=== PATIENT | male | born 1955 | race Caucasian/White ===

== ENCOUNTER → 2019-12-14 13:07 | Outpatient (REF) | payer OTHER, SELFPAY | LOC: ANHLAB 13:07 | PROVIDERS: Visit Provider Surgery Plastic and Reconstructive Surgery | DX: D23.5 Other benign neoplasm of skin of trunk (principal) | CPT/HCPCS: 88304 ==

== ENCOUNTER 2020-08-08 13:44 | Outpatient (CLI) | payer OTHER, SELFPAY ==
--- NOTE | 2020-08-08 17:06 | WPDPFTINT ---
PFT Procedure Performed PFT Procedure Performed Plethysmography (Lung Vol) Diffusing Cap (DLCO) Flow Vol Loop Spirometry w/o Bronchodil PFT Interpretation This is a pulmonary function test with spirometry, plethysmography and diffusing capacity. The test was performed and results interpreted in accordance with the 2019 and 2005 ATS/ERS Task Force guidelines respectively using the Global Lung Function Initiative-2012 reference equations. Patient demonstrated good effort and cooperation. Reproducibility criteria were met. The quality of the spirometry maneuver was Grade B. Findings: Spirometry: The contour of the inspiratory and expiratory flow tracing are normal. The FVC is 4.31 L, 103% predicted. The FEV1 is 3.35 L, 104% predicted. The FEV1: FVC ratio is 78%. Plethysmography: The total lung capacity is 6.90 L, 102% predicted. The functional residual capacity is 2.77 L, 77% predicted. The residual volume is 2.49 L, 107% predicted. Diffusing capacity: The absolute diffusion capacity is 27.0, 102% predicted. The diffusing capacity corrected for alveolar volume is 5.27, 129% predicted. Impression: The spirometry is normal without evidence of an obstructive abnormality. The lung volumes are normal. The diffusing capacity is normal. There are no prior studies for comparison
== END 2020-08-08 13:45 | disposition home or self-care (01) ==
LOC: ANHPFT 13:46
DX: R06.00 Dyspnea, unspecified (principal)
CPT/HCPCS: 94375; 94726; 94729

== ENCOUNTER → 2021-10-15 10:01 | Outpatient (CLI) | payer OTHER, SELFPAY ==
--- NOTE | ~2021-10-15 | CT_ITS ---
EXAMINATION: CT abdomen pelvis w con DATE: 10/15/2021 10:30 INDICATION: Left lower quadrant abdominal pain for couple of weeks. Abdominal distention. TECHNIQUE: Computed tomography (CT) of the abdomen and pelvis was performed with 100 CC Omnipaque 350 intravenous contrast. Automated exposure control and iterative reconstruction technique were employe d. Exam dose: 759.61 mGy-cm total exam DLP. COMPARISON: 06/04/2018 CT abdomen pelvis FINDINGS: The lung bases are clear of infiltrate or consolidation. Normal heart size. No pericardial or pleural effusion. Approximately 8.5 mm right hepatic cyst. The liver, gallbladder, bile ducts, pancreas, pancreatic johnathan t and spleen are otherwise unremarkable. Stable rounded 1.4 cm soft tissue mass at the medial aspect of the left adrenal gland, unchanged sinc e 06/04/2018 and therefore presumably benign, possibly of adrenal or splenic origin. Again noted is an approximately 5.6 cm exophytic upper pole left renal cyst smaller bilateral parapel alex renal cysts. No ureteral calculus or hydroureteronephrosis. There is prostate enlargement. The urinary bladder is unremarkable. Normal caliber of the abdominal aorta. No intraperitoneal or retroperitoneal or pelvic mass lesion or adenopathy or ascites. Small sliding hiatal hernia. Normal appendix. Minimal left colon diverticulosis; no evidence of diverticulitis. No bowel obstruction, bowel wall thickening, pneumatosis or intraperitoneal free air. There is moderately prominent degenerative disc disease at L5-S1, with mild retrolisthesis. There is some degenerative spurring in the lower thoracic and to a lesser extent lumbar spine. Moderately prominent bilateral hip osteoarthritis.. Small fat-containing inguinal hernias, right larger than left. Small fat-containing umbilical hernia. IMPRESSION: Minimal left colon diverticulosis; no evidence of diverticulitis Small sliding hiatal hernia Normal appendix 8 mm hepatic cyst Bilateral renal cysts Minimal left colon diverticulosis; no CT evidence of diverticulitis Prostate enlargement Reviewed, dictated and finalized at [facility]. Reviewed, dictated and finalized at [facility].
[2021-10-15 10:24] LABS: Estimated Glomerular Filt Rate 60
== END ==
PROVIDERS: PCP Internal Medicine Geriatric Medicine; Visit Provider Internal Medicine Geriatric Medicine
DX: R10.32 Left lower quadrant pain (principal); M47.817 Spondylosis without myelopathy or radiculopathy, lumbosacral region; K44.9 Diaphragmatic hernia without obstruction or gangrene; K76.89 Other specified diseases of liver; N28.1 Cyst of kidney, acquired; K57.30 Diverticulosis of large intestine without perforation or abscess without bleeding; K40.90 Unilateral inguinal hernia, without obstruction or gangrene, not specified as recurrent
CPT/HCPCS: 74177; Q9967

== ENCOUNTER 2022-04-30 15:30 | Outpatient (CLI) | payer OTHER, SELFPAY ==
--- NOTE | ~2022-04-30 | XR_ITS ---
EXAMINATION: XR abdomen obstructive series DATE: 04/30/2022 16:13 INDICATION: Acute abdomen pain TECHNIQUE: Supine and upright views of the abdomen. FINDINGS: 06/04/2018 The visualized lung parenchyma is normal.. There is a nonobstructive bowel gas pattern. Gas and stool are seen throughout the colon to the level of the rectum. There is no free air. There is mild lumba r spondylosis. IMPRESSION: 1. No acute abdominal abnormality. Reviewed, dictated and finalized at [facility]. [employer]
== END 2022-04-30 15:31 ==
PROVIDERS: PCP Internal Medicine Geriatric Medicine; Visit Provider Internal Medicine Geriatric Medicine
DX: R10.0 Acute abdomen (principal); R14.0 Abdominal distension (gaseous)
CPT/HCPCS: 74019

== ENCOUNTER 2024-05-29 12:00 | Outpatient (CLI) | payer OTHER, SELFPAY ==
--- NOTE | ~2024-05-29 | XR_ITS ---
Cervical Spine: AP, lateral, open-mouth views Clinical History: Pain Findings: The normal lordotic curve is maintained. No fracture or subluxation. There is severe degene rative disc narrowing at C5-C6 and C6-C7. There is minimal facet arthropathy.. Pre-vertebral soft tis sues are unremarkable. Impression: Degenerative spondylosis, as above, predominantly at C5-C6 and C6-C7. Reviewed, dictated and finalized at [facility]. Impression: Degenerative spondylosis, as above, predominantly at C5-C6 and C6-C7.
--- NOTE | ~2024-05-29 | XR_ITS ---
Left Shoulder Technique: AP and scapular Y views were obtained. Clinical History: Pain Findings: No fracture or dislocation is seen. Osseous alignment is anatomic. The glenohumeral and acr omioclavicular joint spaces are preserved. Soft tissues are unremarkable. Impression: Unremarkable left shoulder radiographs. Reviewed, dictated and finalized at [facility]. Impression: Unremarkable left shoulder radiographs.
--- NOTE | ~2024-05-29 | XR_ITS ---
EXAMINATION: XR chest 2V 05/29/2024 13:12 INDICATION: Chest pain PROCEDURE: 2 view chest COMPARISON: 06/04/2018 FINDINGS: The lungs are clear. The cardiomediastinal silhouette is within normal limits. There are no pleural effusions. There is no pneumothorax suspected. IMPRESSION: 1: NO ACUTE CARDIOPULMONARY DISEASE. Reviewed, dictated and finalized at [facility].
== END 2024-05-29 12:01 | disposition home or self-care (01) ==
LOC: MICIMG 12:03
PROVIDERS: PCP Internal Medicine Geriatric Medicine; Visit Provider Internal Medicine Geriatric Medicine
DX: M47.812 Spondylosis without myelopathy or radiculopathy, cervical region (principal); M25.512 Pain in left shoulder; R07.9 Chest pain, unspecified
CPT/HCPCS: 71046; 72040; 73030

== ENCOUNTER 2024-06-12 13:51 | Outpatient (CLI) | payer OTHER, SELFPAY ==
--- NOTE | ~2024-06-12 | MR_ITS ---
EXAMINATION: MR cervical spine wo con DATE: 06/12/2024 14:19 INDICATION: Cervical radiculopathy. TECHNIQUE: Magnetic resonance imaging (MRI) of the cervical spine was performed without intravenous c ontrast. COMPARISON: Cervical spine radiographs 05/29/2024 FINDINGS: There is 3 degrees levocurvature of cervical spine. Vertebral bodies are normal. There is s everely decreased disc height at C5-C6 and C6-C7. The spinal cord signal intensity is normal. The fol lowing disc levels are specifically discussed: C2-C3: The disc does not extend beyond the endplate margin. There is mild right and moderate left unc overtebral joint osteoarthritis. There is no facet joint osteoarthritis. There is mild left neural fo raminal stenosis. There is no central canal stenosis. C3-C4: The disc is bulging. There is severe bilateral uncovertebral joint osteoarthritis. There is se burke bilateral facet joint osteoarthritis. There is mild bilateral neural foraminal stenosis. There i s mild central canal stenosis. C4-C5: There is a central protrusion. There is mild bilateral uncovertebral joint osteoarthritis. The re is moderate right and severe left facet joint osteoarthritis. There is mild bilateral neural jak inal stenosis. There is mild central canal stenosis. C5-C6: The disc does not extend beyond the endplate margin. There is severe bilateral uncovertebral j oint osteoarthritis. There is mild bilateral facet joint osteoarthritis. There is mild bilateral neur al foraminal stenosis. There is mild central canal stenosis. C6-C7: The disc is bulging. There is severe bilateral uncovertebral joint osteoarthritis. There is se burke bilateral facet joint osteoarthritis. There is mild right and moderate left neural foraminal elinor nosis. There is mild central canal stenosis. C7-T1: The disc is bulging. There is no uncovertebral joint osteoarthritis. There is moderate bilater al facet joint osteoarthritis. There is no neural foraminal stenosis. There is no central canal steno sis. IMPRESSION: 1. Severe cervical spondylosis. Reviewed, dictated and finalized at location [facility].
== END 2024-06-12 13:52 | disposition home or self-care (01) ==
LOC: MICIMG 13:52
PROVIDERS: PCP Internal Medicine Geriatric Medicine; Visit Provider Internal Medicine Geriatric Medicine
DX: M47.22 Other spondylosis with radiculopathy, cervical region (principal)
CPT/HCPCS: 72141